=== PATIENT | female | born 1955 | race Caucasian/White ===

== ENCOUNTER 2016-04-25 16:28 | Emergency (ER) | payer OTHER ==
[~2016-04-25] VITALS: Ht 162.6 cm; Wt 103.0 kg
[2016-04-25 16:54] VITALS: BP 159/68
--- NOTE | 2016-04-25 19:23 | NUR ---
TO ER BED 2
--- NOTE | 2016-04-25 19:35 | NUR ---
PT TAKEN TO CT BY [facility] DRESSER
--- NOTE | 2016-04-25 19:40 | NUR ---
PT BACK FROM CT
--- NOTE | 2016-04-25 19:53 | NUR ---
PATIENT PRESENTS TO ED WITH C.O. ABDOMINAL PAIN FOR 1 MONTH.DENIES N/V/D; SKIN IS PINK/WARM/DRY; AAOX4 WITH EVEN AND STEADY GAIT; LUNGS CLEAR BL; HR EVEN AND REGULAR; PT DENIES ANY FEVER, CP, SOB, OR COUGH AT THIS TIME; PATIENT STATES PAIN OF 0/10 AT THIS TIME; VSS; PATIENT POSITIONED FOR COMFORT; HOB ELEVATED; BEDRAILS UP X2; BED DOWN. ER MD MADE AWARE OF PT STATUS.
--- NOTE | 2016-04-25 19:58 | NUR ---
DR. RAMIREZ SEEING PT AT BEDSIDE.
[2016-04-25] MEDS ORDERED: BELLADONNA/PHENOBARBITAL 5 ML ORASYR PO ONE (20:05)
[2016-04-25] MEDS ORDERED: ONDANSETRON 4 MG/2 ML VIAL IVP ONE (20:05)
[2016-04-25] MEDS ORDERED: LIDOCAINE VISCOUS 2% 20 ML UDC PO ONE (20:05)
[2016-04-25] MEDS ORDERED: NACL 0.9% 1,000 ML IV ONE (20:05)
[2016-04-25] MEDS ORDERED: KETOROLAC 30 MG/ML VIAL IVP ONE (20:05)
[2016-04-25] MEDS ORDERED: ALUMINUM HYD/MAG/SIMETHICONE 30 ML UDC PO ONE (20:05)
[2016-04-25] MEDS ORDERED: PANTOPRAZOLE 40 MG TABEC PO ONE (20:30)
--- NOTE | 2016-04-25 20:49 | NUR ---
PT TOLERATED MEDS WELL. PAIN SCALE 4/10. NO SIGNS OF DISTRESS AT THIS TIME.
--- NOTE | 2016-04-25 20:54 | NUR ---
PT COMPLAINT OF LEFT HAND NUMBNESS. PT LOOKS ANXIOUS AT THIS TIME. PT INSTRUCTED TO RELAX, INSTRUCTED TO DO DEEP BREATHING EXERCISES. DR. RAMIREZ AWARE. VSS AT THIS TIME.
[2016-04-25] MEDS ORDERED: LORazepam 2 MG/ML VIAL IVP ONE (21:10)
--- NOTE | 2016-04-25 21:50 | NUR ---
IV removed, catheter intact and site benign. Applied folded 4x4 gauze and tape to stop bleeding.
[2016-04-25 21:54] VITALS: BP 105/74
--- NOTE | 2016-04-25 21:54 | NUR ---
Patient discharged with v/s stable. Written and verbal after care instructions given and explained. Patient alert, oriented and verbalized understanding of instructions. Ambulatory with steady gait. All questions addressed prior to discharge. ID band removed. Patient advised to follow up with PMD. Rx of ZOFRAN ODT, BACTRIM DS, OMEPRAZOLE 40MG DELAYED RELEASE CAPSULE, MAALOX ADVANCED REGULAR STRENGTH SUSPENSION given. Patient educated on indication of medication including possible reaction and side effects. Opportunity to ask questions provided and answered.
== END 2016-04-25 21:54 | disposition home or self-care (01) ==
LOC: MED 16:28
DX: K29.70 Gastritis, unspecified, without bleeding (principal); I10 Essential (primary) hypertension; J44.9 Chronic obstructive pulmonary disease, unspecified; E11.9 Type 2 diabetes mellitus without complications; Z88.5 Allergy status to narcotic agent
CPT/HCPCS: 36415; 74176; 80053; 81002; 82948; 83690; 85025; 96361; 96374; 96375; 99285; J1885; J2060; J2405; J7030

== ENCOUNTER 2016-07-05 15:20 | Emergency (ER) | payer OTHER ==
[~2016-07-05] VITALS: Ht 160 cm; Wt 63.5 kg
[2016-07-05 15:32] VITALS: BP 119/80
--- NOTE | 2016-07-05 18:30 | NUR ---
CALLED TO A BED NO ANSWER
== END 2016-07-05 18:30 | disposition left against medical advice (07) ==
LOC: MED 15:20
DX: F41.9 Anxiety disorder, unspecified (principal); Z53.21 Procedure and treatment not carried out due to patient leaving prior to being seen by health care provider